=== PATIENT | female | born 1985 | race Two or more races ===

== ENCOUNTER 2023-12-22 18:10 | Emergency (ER) | payer MEDICAID, OTHER ==
[~2023-12-22] VITALS: Ht 172.7 cm; Wt 63.0 kg
[2023-12-22 18:51] VITALS: BP 124/90; PULSE 92; RESP 16; O2SAT 99
== END 2023-12-23 00:56 | disposition home or self-care (01) ==
LOC: ER 18:10
DX: S02.2XXA Fracture of nasal bones, initial encounter for closed fracture (principal); S02.40CA Maxillary fracture, right side, initial encounter for closed fracture; Y08.89XA Assault by other specified means, initial encounter; Y93.89 Activity, other specified; Y92.89 Other specified places as the place of occurrence of the external cause; Y99.8 Other external cause status
CPT/HCPCS: 70486